=== PATIENT | male | born 1965 | race Caucasian/White ===

== ENCOUNTER 2020-01-15 18:28 | Emergency (ER) | payer SELFPAY ==
[2020-01-15] MEDS ORDERED: LIDOCAINE 1% 10 ML VIAL INJ ONE (18:45)
[2020-01-15] MEDS ORDERED: TETANUS,DIPHTHERIA,PERTUSSIS 1 EA SYG IM ONE (18:57)
[2020-01-15 18:58] VITALS: O2SAT 99
[2020-01-15] MEDS ORDERED: SULFA/TRIMETH 800/160 (DS) TAB 1 EA TAB PO ONE (18:58)
--- NOTE | 2020-01-15 19:02 | ED.PDOC ---
History of Present Illness - General Chief Complaint: General Stated Complaint: fish hook right hand Time Seen by Provider: 01/15/20 18:57 Source: patient Exam Limitations: no limitations - History of Present Illness Initial Comments: The pt is [place] 54yo cmwith a fish hook in the tip of his right index finger for 1 hour. no other injury. Timing/Duration: 1 hour Severity: moderate Improving Factors: nothing Worsening Factors: nothing Associated Symptoms: denies symptoms Allergies/Adverse Reactions: Allergies NO KNOWN ALLERGY Allergy (Verified 01/15/20 18:49) Home Medications: Ambulatory Orders NK 01/15/20 Review of Systems - Review of Systems Constitutional: States: no symptoms reported EENTM: States: no symptoms reported Respiratory: States: no symptoms reported Cardiology: States: no symptoms reported Gastrointestinal/Abdominal: States: no symptoms reported Genitourinary: States: no symptoms reported Musculoskeletal: States: no symptoms reported Skin: States: see HPI Neurological: States: no symptoms reported Endocrine: States: no symptoms reported All other Systems: No Change from Baseline Past Medical History (General) - Patient Medical History Hx Seizures: No Hx Stroke: No Hx Dementia: No Hx Asthma: No Hx of COPD: No Hx Cardiac Disorders: No Hx Congestive Heart Failure: No Hx Pacemaker: No Hx Hypertension: No Hx Thyroid Disease: No Hx Diabetes: No Hx Gastroesophageal Reflux: No Hx Renal Disease: No Hx Cancer: No Hx of HIV: No Hx Hepatitis C: No Hx MRSA: No Surgical History: no surgical history - Vaccination History Hx Tetanus, Diphtheria Vaccination: No Hx Influenza Vaccination: No - Social History Hx Tobacco Use: Yes Hx Alcohol Use: Yes - Female History Patient is a Female of Child Bearing Age (10 -59 yrs old): No Family Medical History - Family History Mother Family History: Unknown Living Status: Unknown Physical Exam - Physical Exam General Appearance: Alert, Comfortable, No apparent distress Eye Exam: bilateral normal Ears, Nose, Throat: hearing grossly normal Neck: full range of motion Respiratory: no respiratory distress, no accessory muscle use Cardiovascular/Chest: normal peripheral pulses, no edema Peripheral Pulses: radial,right: 2+, radial,left: 2+ Rectal Exam: deferred Extremity: normal range of motion, no pedal edema, normal capillary refill Neurologic: pre billing clinician II-XII nml as tested, alert, normal mood/affect, oriented x 3 Skin Exam: normal color, other - see hpi Comments: Vital Signs - 24 hr 01/15/20 18:51 Temperature 97.9 F Pulse Rate [ 99 H Left Radial] Respiratory 20 Rate Blood Pressure 113/73 [Left Arm] O2 Sat by Pulse 99 Oximetry Progress - Progress Progress: 01/15/20 19:03 pt presents with a fish hook in the tip of his right index finger. it was removed and the patient received a tetanus shot and a dose of bactrim. he is going to finish a script of clindamycin he has at home for infection prophylaxis. er warnings for any worsening. kami daly [id number] - Results/Orders Results/Orders: r/b explained and pt agrees to proceed with removal. 1% lido without x2cc used for local. hook backed out with pliers. irrigated with h20 for 5 minutes. ebl less than 1 cc. - EKG/XRAY/CT CT Ordered: No Departure - Departure Clinical Impression: [place] injury to finger Qualifiers: Encounter type: initial encounter Laterality: right Qualified Code(s): S69.91XA - Unspecified injury of right wrist, hand and finger(s), initial encounter Disposition: Discharge to Home or Self Care Condition: Fair Departure Forms: ED Discharge - Pt. Copy, Patient Portal Self Enrollment Instructions: Foreign Body in Skin (DC) Diet: regular diet Activity: increase activity as tolerated Home Medications: Ambulatory Orders NK 01/15/20 Additional Instructions: pt presents with a fish hook in the tip of his right index finger. it was removed and the patient received a tetanus shot and a dose of bactrim. he is going to finish a script of clindamycin he has at home for infection prophylaxis. er warnings for any worsening.
[2020-01-15 19:41] VITALS: BP 105/81; TEMP 96.2
== END 2020-01-15 19:25 | disposition home or self-care (01) ==
LOC: ER 18:28
DX: S61.240A Puncture wound with foreign body of right index finger without damage to nail, initial encounter (principal); F17.200 Nicotine dependence, unspecified, uncomplicated; W26.8XXA Contact with other sharp object(s), not elsewhere classified, initial encounter; Y92.9 Unspecified place or not applicable